=== PATIENT | male | born 1980 | race African-American/Black ===

== ENCOUNTER 2019-01-20 09:18 | Emergency (ER) | payer OTHER ==
[~2019-01-20] VITALS: Ht 177.8 cm; Wt 83.9 kg
--- NOTE | 2019-01-20 09:51 | PHYS DOC ---
Past History Past Medical History: No Pertinent History Past Surgical History: No Surgical History Alcohol Use: None Drug Use: None Adult General Chief Complaint Chief Complaint: DIZZY/LIGHT HEADED HPI HPI 38-year-old male presents to the emergency department with complaints of dizziness, decreased energy. Patient states he was doing PT this morning, states he was doing interval training and noticed that after doing pushups concerning his running he felt very tired and felt some dizziness at that time. Patient denies any chest pain, palpitations, or shortness of breath. He primarily is concerned with the decreased energy associated with the interval training and dizziness. Family history is reviewed he does have underlying history of hypertension, diabetes. Review of Systems Review of Systems Constitutional: Denies fever or chills [] Eyes: Denies change in visual acuity Respiratory: Denies cough or shortness of breath [] Cardiovascular: No additional information not addressed in HPI [] GI: Denies abdominal pain, nausea, vomiting, bloody stools or diarrhea [] Musculoskeletal: Denies back pain or joint pain [] Neurologic: Denies headache, focal weakness or sensory changes [] All other systems were reviewed and found to be within normal limits, except as documented in this note. Physical Exam Physical Exam Constitutional: Well developed, well nourished, no acute distress, non-toxic appearance. [] HENT: Normocephalic, atraumatic, oropharynx moist, no oral exudates, nose normal. [] Eyes: PERRLA, EOMI, conjunctiva normal, no discharge. [] Cardiovascular:Heart rate regular rhythm, no murmur [] Lungs & Thorax: Bilateral breath sounds clear to auscultation [] Abdomen: Bowel sounds normal, soft, no tenderness, no masses, no pulsatile masses. [] Skin: Warm, dry, no erythema, no rash. [] Neurologic: Alert and oriented X 3, no focal deficits noted. [] Psychologic: Affect normal, judgement normal, mood normal. [] Current Patient Data Vital Signs Vital Signs Date Time Temp Pulse Resp B/P (MAP) Pulse Ox O2 Delivery O2 Flow Rate FiO2 01/20/19 09:25 98.1 65 16 96 Room Air Lab Results Laboratory Tests Test 01/20/19 09:52 Sodium Level 141 mmol/L Potassium Level 4.5 mmol/L Chloride Level 103 mmol/L Carbon Dioxide Level 29 mmol/L Anion Gap 9 Blood Urea Nitrogen 16 mg/dL Creatinine 1.7 mg/dL Estimated GFR (Cockcroft-Gault) 45.8 Glucose Level 79 mg/dL Calcium Level 10.0 mg/dL Magnesium Level 2.3 mg/dL EKG EKG EKG reviewed 0 958, heart rate 89, normal sinus rhythm. No evidence of acute ST or T wave change.[] Radiology/Procedures Radiology/Procedures [] Course & Med Decision Making Course & Med Decision Making Pertinent Labs and Imaging studies reviewed. (See chart for details) []38-year-old male presents to the emergency department with complaints of dizziness, decreased energy. Patient states he was doing PT this morning, states he was doing interval training and noticed that after doing pushups concerning his running he felt very tired and felt some dizziness at that time. Patient denies any chest pain, palpitations, or shortness of breath. He primarily is concerned with the decreased energy associated with the interval training and dizziness. Family history is reviewed he does have underlying history of hypertension, diabetes. Labs and EKG reviewed. Dragon Disclaimer Dragon Disclaimer This electronic medical record was generated, in whole or in part, using a voice recognition dictation system. Departure Departure: Impression: Primary Impression: Dizziness Additional Impression: Dehydration Disposition: 01 HOME, SELF-CARE Condition: STABLE Referrals: PCP,UNKNOWN (PCP) Patient Instructions: Dehydration, Adult, [id number], Dizziness, [id number] Additional Instructions: Follow up with PCP Encourage po intake for hydration, especially during PT Labs without electrolyte abnormality Mild elevation of kidney function (1.7) - associated with dehydration Consider holter monitor as outpatient Return to the ER with chest pain, SOB, altered mental status Problem Qualifiers EDGAR VALLE MD Jan 20, 2019 09:51
[2019-01-20 10:14] LABS: CREATININE 1.7 mg/dL (0.7-1.3); GFR 45.8; MAGNESIUM 2.3 mg/dL (1.8-2.4); POTASSIUM 4.5 mmol/L (3.5-5.1)
[2019-01-20 10:44] VITALS: BP 123/71
--- NOTE | 2019-01-20 13:34 | EKG ---
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
== END 2019-01-20 10:44 | disposition home or self-care (01) ==
LOC: ER 09:18
DX: E86.0 Dehydration (principal); R42 Dizziness and giddiness; I10 Essential (primary) hypertension; E11.9 Type 2 diabetes mellitus without complications
CPT/HCPCS: 36415; 80048; 83735; 93005; 99285

== ENCOUNTER 2019-04-04 15:40 | Emergency (ER) | payer OTHER ==
[~2019-04-04] VITALS: Ht 180.3 cm; Wt 87.1 kg
[2019-04-04 15:50] VITALS: BP 115/70
[2019-04-04] MEDS ORDERED: TRIA10.8 NS (15:58)
--- NOTE | 2019-04-04 15:58 | PHYS DOC ---
Past History Past Medical History: No Pertinent History Past Surgical History: No Surgical History Alcohol Use: None Drug Use: None Adult General Chief Complaint Chief Complaint: EARACHE/EAR PAIN [facility] HPI Patient is a 38-year-old male who presents with complaint of bilateral ear pressure, discomfort, muffled hearing and a little ringing. He denies headache. He denies any fever. He denies any nausea or vomiting.[] Review of Systems Review of Systems Constitutional: Denies fever or chills [] HENT: Complains of bilateral ear pain/muffled hearing[] Respiratory: Denies cough or shortness of breath [] Cardiovascular: No additional information not addressed in HPI [] Allergies Allergies Allergies Coded Allergies Type Severity Reaction Last Updated Verified No Known Drug Allergies 04/04/19 No Physical Exam Physical Exam Constitutional: Well developed, well nourished, no acute distress, non-toxic appearance. [] HENT: Normocephalic, atraumatic, TMs are slightly retracted bilaterally with fluid levels. No erythema is noted. [] Neck: Normal range of motion, no tenderness, supple, no stridor. [] Cardiovascular:Heart rate regular rhythm, no murmur [] Lungs & Thorax: Bilateral breath sounds clear to auscultation [] EKG EKG [] Radiology/Procedures Radiology/Procedures [] Course & Med Decision Making Course & Med Decision Making Pertinent Labs and Imaging studies reviewed. (See chart for details) [] Dragon Disclaimer Dragon Disclaimer This electronic medical record was generated, in whole or in part, using a voice recognition dictation system. Departure Departure: Impression: Primary Impression: Eustachian tube dysfunction Disposition: 01 HOME, SELF-CARE Condition: STABLE Referrals: GM BENTON (PCP) Patient Instructions: Serous Otitis Media Scripts Triamcinolone Acetonide (NASACORT) 10.8 Ml [place] 2 SPR NS QHS for ear pain, #10.8 ML 0 Refills Prov: JOEL PEMBERTON Jr. DO 04/04/19 Problem Qualifiers Primary Impression: Eustachian tube dysfunction Laterality: bilateral Qualified Codes: H69.83 - Other specified disorders of eustachian tube, bilateral JOEL PEMBERTON Jr. DO Apr 04, 2019 15:58
== END 2019-04-04 16:00 | disposition home or self-care (01) ==
LOC: ER 15:40
DX: H69.83 Other specified disorders of Eustachian tube, bilateral (principal)
CPT/HCPCS: 99283